=== PATIENT | female | born 1980 | race Two or more races ===

== ENCOUNTER 2024-12-16 09:59 | Emergency (ER) | payer MEDICAID, OTHER ==
[~2024-12-16] VITALS: Ht 154.9 cm; Wt 92.0 kg
[2024-12-16 11:13] LABS: Urine Bacteria None Seen /hpf (None Seen)
[2024-12-16 11:23] LABS: Eosinophils # (auto) 0.3 10 ^3/uL (0-0.8); Mean Corpuscular Hemoglobin 24.3 pg (28.0-32.0); Monocytes # (auto) 0.7 10 ^3/uL (0-1.3)
[2024-12-16 11:23] LABS: Urine Blood 3+ /uL (Negative); Urine Clarity Ex.Turbid (Clear); Urine Color Red (Yellow); Urine Protein, UAD 2+ (Negative); Urine Specific Gravity 1.007 (1.001-1.035); Urine Squamous Epithelial Cell None Seen /hpf (<5); Urine Urobilinogen Normal (Negative); Urine pH 6.5 (5.0-9.0)
--- NOTE | 2024-12-16 11:24 | ED.PDOC ---
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 Patient states, that she has been experiencing pelvic pain with associated symptoms of abnormal vaginal bleeding, dysuria, nausea, and dizziness since November 26, 2024. Patient relays, vaginal bleeding began as normal menstruation and increasingly progressed with visible clots that have been persistent. Patient states, that she has been told she have anemia; denies ever having a blood transfusion in the past. Patient complains of current 8/10 pain. Patient denies weakness, fatigue, vomiting, or fever. No other symptoms or modifying factors at this time. Chief Complaint: Pelvic Pain Time Seen by MD: 10:50 Reviewed Notes: Nurses Notes, Medications, Allergies Allergies: Coded Allergies: NO KNOWN ALLERGIES (Unverified , 12/16/24) Home Meds Active Scripts Hydrocodone-Acetaminophen (Hydrocodone Bitartrate/AC 5-325 mg) 1 Tab Tab, 1 TAB PO Q8HP PRN for 5 Days, #15 TAB Prov:JOSE ARMANDO LUNDBERG MD 12/16/24 Information Source: Patient Mode of Arrival: Ambulatory Timing: Days Severity: Moderate Vaginal Discharge: None Vaginal Lesions: None Bleeding Quality: Clotted Vaginal Mass: None Onset Of Mass/Bleeding: Menstrual Last Consensual Purple Sage: None Control: None Symptoms of Possible : None Associated Signs and Symptoms: Vaginal Bleeding, Dysuria Past Medical History PAST MEDICAL HISTORY: Denies Surgical History: Appendectomy, , Tubal Ligation 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 Family History Family History: Family hx of Cancer Social History Smoker: Non-Smoker Alcohol: Denies ETOH Use Drugs: Denies Drug Use Lives In: Home Constitutional: denies: chills, diaphoresis, fatigue, fever, malaise, sweats, weakness, others EENTM: denies: blurred vision, double vision, ear bleeding, ear discharge, ear drainage, ear pain, ear ringing, eye pain, eye redness, hearing loss, mouth pain, mouth swelling, nasal discharge, nose bleeding, nose congestion, nose pain, photophobia, tearing, throat pain, throat swelling, voice changes, others Respiratory: denies: cough, hemoptysis, orthopnea, SOB at rest, shortness of breath, SOB with excertion, stridor, wheezing, others Cardiovascular: denies: chest pain, dizzy spells, diaphoresis, Dyspnea on exertion, edema, irregular heart beat, left arm pain, lightheadedness, palpitations, PND, syncope, others Gastrointestinal: reports: nausea; denies: abdomen distended, abdominal pain, blood streaked bowels, constipated, diarrhea, dysphagia, difficulty swallowing, hematemesis, melena, poor appetite, poor fluid intake, rectal bleeding, rectal pain, vomiting, others Genitourinary: reports: abnormal vagina bleeding, burning, dysuria; denies: dyspareunia, flank pain, frequency, hematuria, incontinence, pain, , vagina discharge, urgency, others Neurological: reports: dizziness; denies: fainting, headache, left sided numbness, left sided weakness, numbness, paresthesia, pre-existing deficit, right sided numbness, right sided weakness, seizure, speech problems, tingling, tremors, weakness, others Musculoskeletal: denies: back pain, gout, joint pain, joint swelling, muscle pain, muscle stiffness, neck pain, others Integumetry: denies: bruises, change in color, change in hair/nails, dryness, laceration, lesions, lumps, rash, wounds, others Allergic/Immunocompromised: denies: Difficulty Healing, Frequent Infections, Hives, Itching, others Hematologic/Lymphatic: reports: blood clots; denies: anemia, easy bleeding, e asy bruising, swollen glands, others Endocrine: denies: excessive hunger, excessive sweating, excessive thirst, excessive urination, flushing, intolerance to cold, intolerance to heat, unexplained weight gain, unexplained weight loss, others Psychiatric: denies: anxiety, bipolar disorder, depression, hopeless, panic disorder, schizophrenia, sleepless, suicidal, others All Other Systems: Reviewed and Negative Physical Exam General Appearance: Moderate Distress HEENT: Normal ENT Inspection, Pharynx Normal, TMs Normal Neck: Full Range of Motion, Non-Tender, Normal, Normal Inspection Respiratory: Chest Non-Tender, Lungs Clear, No Accessory Muscle Use, No Respiratory Distress, Normal Breath Sounds Cardiovascular: No Edema, No JVD, No Murmur, No Gallop, Normal Peripheral Pulses, Regular Rate/Rhythm Breast Exam: Deferred Gastrointestinal: No Organomegaly, No Pulsatile Mass, Normal Bowel Sounds, Soft, Suprapubic, Tenderness Genitalia: Deferred Pelvic: Deferred Rectal: Deferred Extremities: No calf tenderness, Normal capillary refill, Normal inspection, Normal range of motion, Non-tender, No pedal edema Musculoskeletal : Apperance: Normal 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) Vaginal Bleeding: Dysmenorrhea, Hormonal, Menorrhagia, Menometrorrhagia X-Ray, Labs, Meds, VS Vital Signs Date Time Temp Pulse Resp B/P (MAP) Pulse Ox O2 Delivery O2 Flow Rate FiO2 12/16/24 10:20 97.9 72 16 147/93 (111) 97 97.9 Lab Test 12/16/24 11:06 12/16/24 10:55 Range/Units White Blood Count 9.0 4.4-10.8 10^3/uL Red Blood Count 5.11 4.0-5.20 10^6/uL Hemoglobin 12.4 12.2-16.2 g/dL Hematocrit 38.1 36.0-46.0 % Mean Corpuscular Volume 74.4 L 80.0-100.0 fL Mean Corpuscular Hemoglobin 24.3 L 28.0-32.0 pg Mean Corpuscular Hemoglobin Concent 32.7 32.0-36.0 g/dL Red Cell Distribution Width 24.4 H 11.8-14.3 % Platelet Count 400 140-450 10^3/uL Mean Platelet Volume 7.7 6.9-10.8 fL Neutrophils (%) (Auto) 50.9 37.0-80.0 % Lymphocytes (%) (Auto) 38.0 10.0-50.0 % Monocytes (%) (Auto) 7.4 0.0-12.0 % Eosinophils (%) (Auto) 3.2 0.0-7.0 % Basophils (%) (Auto) 0.5 0.0-2.0 % Neutrophils # (Auto) 4.6 1.6-8.6 10 ^3/uL Lymphocytes # (Auto) 3.4 0.4-5.4 10 ^3/uL Monocytes # (Auto) 0.7 0-1.3 10 ^3/uL Eosinophils # (Auto) 0.3 0-0.8 10 ^3/uL Basophils # (Auto) 0 0-0.2 10 ^3/uL Nucleated Red Blood Cells 0.1 % Platelet Estimate Adequate Hypochromasia (manual) Slight Anisocytosis (manual) Slight Microcytosis Moderate Prothrombin Time 10.2 9.3-11.8 sec Prothrombin Time INR 0.96 0.9-1.15 Activated Partial Thromboplast Time 27.1 24.5-34.5 SEC Sodium Level 140 136-145 mmol/L Potassium Level 3.9 3.5-5.1 mmol/L Chloride Level 107 98-107 mmol/L Carbon Dioxide Level 26 20-31 mmol/L Anion Gap 7 5-15 Blood Urea Nitrogen 9 9-23 mg/dL Creatinine 0.87 0.550-1.02 mg/dL Glomerular Filtration Rate Calc 84 >90 mL/min BUN/Creatinine Ratio 10.3 10.0-20.0 Serum Glucose 89 74-106 mg/dL Calcium Level 9.5 8.7-10.4 mg/dL Urine Color Red H Yellow Urine Clarity Ex.turbid Clear Urine pH 6.5 5.0-9.0 Urine Specific [place] 1.007 1.001-1.035 Urine Protein 2+ H Negative Urine Ketones Negative Negative Urine Blood 3+ H Negative /uL Urine Nitrite Negative Negative Urine Bilirubin Negative Negative Urine Urobilinogen Normal Negative mg/dL Urine Leukocyte Esterase Trace Negative /uL Urine RBC 65798 0 - 4 /hpf Urine Microscopic WBC 0-5 /HPF Urine Squamous Epithelial Cells None seen <5 /hpf Urine Bacteria None seen None Seen /hpf Urine Glucose Normal Normal mg/dL The patient's CBC is within normal limits The chemistry panel is within normal limits The urine test is positive for blood but no sign of any UTI The pelvic ultrasound shows: IMPRESSION: Enlarged uterus. Heterogeneous lesion in the fundus may represent a fibroid. Follow-up MRI may be obtained to further evaluate. The patient was being discharged on [place] The patient will follow up with the primary care doctor The patient will return to the emergency department's the condition worsens. Images Reviewed?: Images reviewed and evaluated by me Time of 1ST Reevaluation: 11:20 Reevaluation 1ST: Unchanged Patient Education/Counseling: Diagnosis, Treatment, Prognosis, Need For Follow Up Family Education/Counseling: No Family Present Departure 1 Departure Time of Disposition: 14:47 Impression: Primary Impression: Fibroid tumor Additional Impression: Abdominal pain Qualified Codes: R10.9 - Unspecified abdominal pain Disposition: 01 HOME / SELF CARE / HOMELESS Condition: Fair e-Prescriptions Hydrocodone-Acetaminophen (Hydrocodone Bitartrate/AC 5-325 mg) 1 Tab Tab 1 TAB PO Q8HP PRN for 5 Days, #15 TAB Prov: JOSE ARMANDO LUNDBERG MD 12/16/24 Discharged With: Self Critical Care Note Critical Care Time?: No Stability Stability form required: No Heart Score Heart Score: Heart Score Response (Comments) Value History N/A 0 EKG N/A 0 Age N/A 0 Risk Factors N/A 0 Troponin N/A 0 Total 0 I personally scribed for JOSE ARMANDO LUNDBERG MD ([email or web address]) on 12/16/24 at 11:24. Electronically submitted by Mary Castillo [email or web address]). JOSE ARMANDO LUNDBERG MD Dec 16, 2024 11:24
[2024-12-16 11:28] LABS: Basophils # (auto) 0 10 ^3/uL (0-0.2); Basophils % (auto) 0.5 % (0.0-2.0); Eosinophils % (auto) 3.2 % (0.0-7.0); Hematocrit 38.1 % (36.0-46.0); Hemoglobin 12.4 g/dL (12.2-16.2); Lymphocytes # (auto) 3.4 10 ^3/uL (0.4-5.4); Mean Corpuscular Hgb Conc. 32.7 g/dL (32.0-36.0); Mean Corpuscular Volume 74.4 fL (80.0-100.0); Monocytes % (auto) 7.4 % (0.0-12.0); Neutrophils # (auto) 4.6 10 ^3/uL (1.6-8.6); Neutrophils % (auto) 50.9 % (37.0-80.0); Nucleated Red Blood Cells % 0.1 %; Platelet Count (auto) 400 10^3/uL (140-450); Red Blood Cells 5.11 10^6/uL (4.0-5.20)
[2024-12-16 11:30] LABS: Chloride 107 mmol/L (98-107); Potassium 3.9 mmol/L (3.5-5.1); Sodium 140 mmol/L (136-145)
[2024-12-16 11:31] LABS: Anion Gap 7 (5-15); Carbon Dioxide 26 mmol/L (20-31)
[2024-12-16 11:32] LABS: Calcium 9.5 mg/dL (8.7-10.4)
[2024-12-16 11:37] LABS: BUN/Creatinine Ratio 10.3 (10.0-20.0); Glucose 89 mg/dL (74-106)
[2024-12-16 11:39] LABS: Blood Urea Nitrogen 9 mg/dL (9-23)
[2024-12-16 11:43] LABS: Red Cell Distribution Width 24.4 % (11.8-14.3)
[2024-12-16 11:50] LABS: INR 0.96 (0.9-1.15); Partial Thromboplastin Time 27.1 SEC (24.5-34.5); Prothrombin Time 10.2 sec (9.3-11.8)
[2024-12-16 12:09] LABS: Anisocytosis Slight; Hypochromia Slight; Platelet Estimate Adequate
--- NOTE | 2024-12-16 14:18 | DVH ---
PELVIC ULTRASOUND WITH TRANSABDOMINAL IMAGING CLINICAL HISTORY: pain COMPARISON: None TECHNIQUE: Transabdominal grayscale, color-flow Doppler, and duplex Doppler was performed. FINDINGS: Uterus: The uterus measures 14.1 x 6.6 x 8.2 cm. Heterogeneous, vascular structure in the uterine fu ndus measuring approximately 5.7 cm in diameter. Endometrium: Double thickness of the endometrial stripe measures 0.2 cm. Endometrial thickness is uni form. The right ovary measures 3.6 x 3.6 x 1.8 cm. The left ovary measures 3.7 x 3.2 x 1.9 cm. Both ovarie s demonstrate dopplerable blood flow on spectral analysis. No free fluid identified in the cul-de-sac. IMPRESSION: Enlarged uterus. Heterogeneous lesion in the fundus may represent a fibroid. Follow-up MRI may be o btained to further evaluate. HS:Y
[2024-12-16] MEDS ORDERED: HYDR-4902 PO (14:33)
[2024-12-16 15:16] VITALS: BP 142/87; PULSE 67; RESP 17; TEMP 97.7; O2SAT 97
== END 2024-12-16 15:18 | disposition home or self-care (01) ==
LOC: ER 09:59
DX: D21.9 Benign neoplasm of connective and other soft tissue, unspecified (principal); R10.2 Pelvic and perineal pain; R10.84 Generalized abdominal pain; R42 Dizziness and giddiness; Z98.890 Other specified postprocedural states; Z90.49 Acquired absence of other specified parts of digestive tract; Z98.51 Tubal ligation status
CPT/HCPCS: 36415; 76856; 80048; 81001; 85025; 85610; 85730; 86850; 86900; 86901